=== PATIENT | male | born 1950 | race Caucasian/White ===

== ENCOUNTER → 2018-11-20 | Day surgery (SDC) | payer MEDICARE ==
[2018-11-16 14:33] LABS: BASOPHILS # (AUTO) 0.1 (0.0-0.1); BASOPHILS % 0.8 % (0.0-1.0); EOSINOPHILS # (AUTO) 0.1 (0.0-0.4); EOSINOPHILS % 1.6 % (0.0-6.0); HEMATOCRIT 43.3 % (38.2-49.6); HEMOGLOBIN 14.5 g/dL (14.0-18.0); LYMPHOCYTES % 27.9 % (18.0-39.1); MEAN CORPUSCULAR HEMOGLOBIN 29.5 pg (28-32); MEAN CORPUSCULAR HGB CONC 33.5 g/dL (31-35); MEAN CORPUSCULAR VOLUME 88.2 fL (81-99); MONOCYTES # (AUTO) 0.6 (0.2-0.8); MONOCYTES % 8.2 % (4.4-11.3); NEUTROPHILS # (AUTO) 4.4 (2.1-6.9); NEUTROPHILS % 60.7 % (38.7-80.0); PLATELET COUNT 141 x10e3/uL (140-360); RED BLOOD COUNT 4.91 x10e6/uL (4.3-5.7); RED CELL DISTRIBUTION WIDTH 13.2 % (11.7-14.4)
[~2018-11-20] MED LIST: ACETAMINOPHEN 1000 MG/100 ML IV ONE; ADVAIR 500/501 EA INH; AMLODIPINE BESY10 MG PO; ASPIR 8181 MG PO; BACITRACIN 50,000 UNIT VIAL ONE; BENEFIBER240 GM PO; BUPIVACAINE HCL 0.5% INJ 30 ML VIAL INJ ONE; BUPROPION HCL100 MG PO; CEFAZOLIN SOD 1 GM/NS 50ML 50 ML IV ONE; DEXAMETHASONE SOD PHOS INJ 4 MG/ML VIAL ONE; FENTANYL CITRATE/PF 100MCG/2 ML INJ ONE; FINASTERIDE5 MG PO; FLOMAX0.4 MG PO; HYDROXYZINE HCL25 MG PO; IRON PO; LEVOFLOXACIN 500MG/D5W 100ML 100 ML IV ONE; LIDOCAINE HCL 1% LOCAL INJ 20 ML VIAL ONE; LIDOCAINE HCL 2% LOCAL INJ 5 ML SDV VIAL INJ ONE; LISINOPRIL10 MG PO; LORATADINE10 MG PO; LORAZEPAM1 MG PO; METOPROLOL TART50 MG PO; MIDAZOLAM HCL 2 MG/2 ML VIAL ONE; MULTIVITAMINS1 EAC7 PO; ONDANSETRON HCL INJ 2MG/ML 2ML 2 MG/ML VIAL ONE; PANTOPRAZOLE SO40 MG PO; PROPOFOL IV EMULSION 10 MG/ML 20 ML VIAL ONE; REPATHA; SEVOFLURANE INHAL SOLN 250 ML PEN BTL ONE; VITAMIN B12-FO1 EACH PO; VITAMIN D31000 UNI1 PO
[2018-11-20 11:00] VITALS: BP 130/73
--- NOTE | 2018-11-20 20:06 | Operative Report ---
DATE OF PROCEDURE: 11/20/2018 SURGEON: Vignesh Kaur MD PREOPERATIVE DIAGNOSES: Bilateral spermatocele, bilateral hydrocele, postoperative pain. POSTOPERATIVE DIAGNOSES: Bilateral spermatocele, bilateral hydrocele, postoperative pain PROCEDURES: 1. Bilateral hydrocele repair (entirely separate procedure for bilateral hydroceles). 2. Left-sided spermatocele repair. 3. Right-sided spermatocele repair. 4. Spermatic cord block (entirely separate procedure for the exclusive purpose of reliving the postoperative pain not required for surgery as the patient underwent general anesthesia). ANESTHESIA: General. ESTIMATED BLOOD LOSS: Minimal. COMPLICATIONS: None. INDICATIONS FOR PROCEDURE: Mr. Parsons is a 67-year-old male with a history of symptomatic bilateral spermatoceles and on my exam bilateral hydroceles. He and I had a long discussion about alternatives, risks, and benefits of doing nothing, repair. He voiced understanding of the options, the alternatives, the risks and benefits and he elected to proceed PROCEDURE IN DETAIL: After informed consent was obtained, the patient was taken to the operative suite, placed supine on the operative table, underwent general anesthesia by service. He was prepped and draped in standard fashion for scrotal surgery. A time-out was taken. Attention was turned to the scrotum. A midline incision was carried to the cremasters. Attention was first turned to the left testicle, which was delivered extravaginally. Tunica vaginalis was sharply incised draining a plethora of fluid. A sales utility representative section of the hydrocele sac was passed off the table as specimen. This was then inverted upon itself, hold in bottleneck fashion and sewn closed with chromic gut stitch. At this time, spermatocele was readily evidenced approximately 2 cm inside on the left. This was dissected with a combination of sharp and electrocautery until neck was identified, this was ligated and fulgurated. A sales utility representative section of the spermatocele was passed off the table as a specimen. Meticulous hemostasis was obtained. The testicle was placed back in its normal anatomic location and position in the left hemiscrotum. This process was then repeated on the right side with excellent hemostasis obtained. Both testes were placed in normal anatomic location and position under direct vision. Spermatic cord block was performed with 0.5% Marcaine. The wound was again irrigated. The cremasters were closed with a running chromic gut stitch. The skin was then closed with a running chromic gut stitch. All sponge and instrument counts were correct x2. MD AQUILINO Tompkins/HARRY /[id number] cc: Odell Belcher MD
== END | disposition home or self-care (01) ==
LOC: OR 08:02
PROVIDERS: ATTEND Urology
DX: N43.42 Spermatocele of epididymis, multiple (principal); N43.3 Hydrocele, unspecified; G89.18 Other acute postprocedural pain; Z88.1 Allergy status to other antibiotic agents; Z88.0 Allergy status to penicillin; Z88.8 Allergy status to other drugs, medicaments and biological substances; K21.9 Gastro-esophageal reflux disease without esophagitis; F41.9 Anxiety disorder, unspecified; F32.9 Major depressive disorder, single episode, unspecified; F17.210 Nicotine dependence, cigarettes, uncomplicated; I10 Essential (primary) hypertension; N40.0 Benign prostatic hyperplasia without lower urinary tract symptoms; Z01.812 Encounter for preprocedural laboratory examination
CPT/HCPCS: 36415; 54840; 55060; 85025; 88302; 88304; J0131; J0690; J1100; J1956; J2001; J2250; J2405; J2704

== ENCOUNTER 2020-04-20 17:37 | Emergency (ER) | payer BC, MEDICARE ==
[~2020-04-20] VITALS: Ht 170.2 cm; Wt 70.3 kg
[~2020-04-20 17:37] MED LIST changes: -ACETAMINOPHEN 1000 MG/100 ML IV ONE; -BACITRACIN 50,000 UNIT VIAL ONE; -BUPIVACAINE HCL 0.5% INJ 30 ML VIAL INJ ONE; -CEFAZOLIN SOD 1 GM/NS 50ML 50 ML IV ONE; -DEXAMETHASONE SOD PHOS INJ 4 MG/ML VIAL ONE; -FENTANYL CITRATE/PF 100MCG/2 ML INJ ONE; -LEVOFLOXACIN 500MG/D5W 100ML 100 ML IV ONE; -LIDOCAINE HCL 1% LOCAL INJ 20 ML VIAL ONE; -LIDOCAINE HCL 2% LOCAL INJ 5 ML SDV VIAL INJ ONE; -MIDAZOLAM HCL 2 MG/2 ML VIAL ONE; -ONDANSETRON HCL INJ 2MG/ML 2ML 2 MG/ML VIAL ONE; -PROPOFOL IV EMULSION 10 MG/ML 20 ML VIAL ONE; -SEVOFLURANE INHAL SOLN 250 ML PEN BTL ONE
[2020-04-20] MEDS ORDERED: MORPHINE SULFATE 2 MG/ML SYR 1ML IV STA ×2 (18:33→19:13)
[2020-04-20] MEDS ORDERED: ONDANSETRON HCL INJ 2MG/ML 2ML 2 MG/ML VIAL IV STA (18:33)
[2020-04-20] MEDS ORDERED: MORPHINE SULFATE INJ 4 MG/ML INJ 1ML ONE (18:44)
[2020-04-20] MEDS ORDERED: ONDANSETRON HCL INJ 2MG/ML 2ML 2 MG/ML VIAL ONE (18:44)
[2020-04-20] MEDS ORDERED: SODIUM CHLORIDE 0.9% 1000ML 1,000 ML IV SCH (18:45)
[2020-04-20] MEDS ORDERED: MORPHINE SULFATE INJ 4 MG/ML INJ 1ML IV STA (18:45)
[2020-04-20] MEDS ORDERED: ONDANSETRON ODT8 MG PO (21:33)
[2020-04-20] MEDS ORDERED: CIPRO500 MG PO (21:36)
[2020-06-02] MEDS ORDERED: ALLERGY RELIEF10 M1 PO (16:12)
[2020-06-02] MEDS ORDERED: WIXELA 500-501 EACH INH (16:12)
[2020-06-02] MEDS ORDERED: REPATHA PU420 MG/3.5 SC (16:12)
[2020-06-02] MEDS ORDERED: VITAMIN B-121000 MCG PO (16:12)
[2020-06-02] MEDS ORDERED: OMEPRAZOLE40 MG PO (16:12)
== END 2020-04-20 21:55 | disposition home or self-care (01) ==
LOC: FSED 17:45
DX: R10.11 Right upper quadrant pain (principal); R10.31 Right lower quadrant pain; R33.9 Retention of urine, unspecified; R11.2 Nausea with vomiting, unspecified; N40.1 Benign prostatic hyperplasia with lower urinary tract symptoms; I10 Essential (primary) hypertension; J44.9 Chronic obstructive pulmonary disease, unspecified; E78.5 Hyperlipidemia, unspecified; K21.9 Gastro-esophageal reflux disease without esophagitis; F41.9 Anxiety disorder, unspecified; F17.210 Nicotine dependence, cigarettes, uncomplicated
CPT/HCPCS: 51702; 74176; 80048; 80076; 81003; 82553; 84484; 85025; 96374; 96375; 99284; J2270; J2405; J7030

== ENCOUNTER → 2020-06-06 | Day surgery (SDC) | payer MEDICARE ==
[2020-06-02 11:08] LABS: BASOPHILS # (AUTO) 0.1 (0.0-0.1); BASOPHILS % 0.7 % (0.0-1.0); EOSINOPHILS # (AUTO) 0.2 (0.0-0.4); EOSINOPHILS % 2.9 % (0.0-6.0); HEMATOCRIT 38.3 % (38.2-49.6); HEMOGLOBIN 12.1 g/dL (14.0-18.0); LYMPHOCYTES # (AUTO) 2.3 (1.0-3.2); MEAN CORPUSCULAR HEMOGLOBIN 27.9 pg (28-32); MEAN CORPUSCULAR HGB CONC 31.6 g/dL (31-35); MEAN CORPUSCULAR VOLUME 88.2 fL (81-99); MONOCYTES # (AUTO) 0.6 (0.2-0.8); MONOCYTES % 8.5 % (4.4-11.3); NEUTROPHILS % 55.3 % (38.7-80.0); PLATELET COUNT 161 x10e3/uL (140-360); RED BLOOD COUNT 4.34 x10e6/uL (4.3-5.7); RED CELL DISTRIBUTION WIDTH 14.2 % (11.7-14.4)
[2020-06-02 11:31] LABS: ALBUMIN 3.3 g/dL (3.5-5.0); ANION GAP 15.6 mmol/L (8-16); CALCIUM 8.5 mg/dL (8.4-10.2); CREATININE, SERUM 2.32 mg/dL (0.72-1.25); POTASSIUM 4.6 mmol/L (3.5-5.1)
[~2020-06-06] VITALS: Ht 170.2 cm; Wt 67.6 kg
[~2020-06-06] MED LIST changes: +ALLERGY RELIEF10 M1 PO; +ALPRAZOLAM 0.5 MG TAB ONE; +CIPRO500 MG PO; +DIPHENHYDRAMINE HCL 25 MG CAP ONE; +FENTANYL CITRATE/PF 100MCG/2 ML INJ ONE; +HEPARIN SOD/SOD CHLORIDE 2,000 ML ONE; +IOPAMIDOL 370 MG/ML 200 ML INFUS..BTL INJ ONE; +LIDOCAINE HCL 2% LOCAL 20 ML VIAL ONE; +MIDAZOLAM HCL 2 MG/2 ML VIAL ONE; +OMEPRAZOLE40 MG PO; +ONDANSETRON ODT8 MG PO; +REPATHA PU420 MG/3.5 SC; +SODIUM CHLORIDE 0.9% 1000ML 1,000 ML ONE; +VERAPAMIL HCL 2.5 MG/ML 2 ML VIAL ONE; +VITAMIN B-121000 MCG PO; +WIXELA 500-501 EACH INH
--- NOTE | 2020-06-06 11:43 | NUR ---
1143a Report from Anurag Salazar Identifer x2 . Alert oriented and appropriate, PERRLA, respirations even and unlabored to room air. Pulses x4 extremities equal and palpable . Cap fill brisk < 3 sec. + neurovascular function of right wrist/hand w/ TR Band present. No s/s of swelling or discolor at site. VS trend reviewed and medications given.TR band down at 1230. Skin warm and dry integrity appears intact in general. IV left ac at 100cchr, presents healthy w/o s/s of infiltration or complaint. Abdomen soft and supple. pt offered toileting, denies need to urinate or defecate. Resting with HOB elevated aprox 30o. Personal affects with patient. Pt verbalizes understanding of POC. Educated simulation analyst light use. bed low and locked, side rails up x2 and call light at side. tele obs bed requested and awaiting assignment. pt using personal mask for COVID-19 mitigation. ds/sarah beth
[2020-06-06 12:00] VITALS: BP 100/70
[2020-06-06 12:15] VITALS: BP 133/71
[2020-06-06 12:30] VITALS: BP 132/71
--- NOTE | 2020-06-06 12:41 | Operative Report ---
DATE OF PROCEDURE: 06/06/2020 SURGEON: Triston Murphy MD INDICATIONS: Coronary artery disease, angina, and abnormal stress test. PROCEDURES PERFORMED: 1. Ultrasound-guided access in the right radial artery with sheath placement. 2. Conscious sedation, 35 minutes. 3. Left heart catheterization, selective coronary angiography. 4. Deployment of right wrist TR band. COMPLICATIONS: None. BLOOD LOSS: Minimal. RECOMMENDATIONS: 1. Addition of ranolazine for medical therapy of moderate coronary artery disease. 2. Nephrology consultation. DESCRIPTION OF PROCEDURE: Access was obtained in the right radial artery using ultrasound guidance. A 5-Yi sheath was placed. Coronary angiography demonstrated 50% proximal circumflex stenosis, 50% left anterior descending artery stenosis. Remaining vessels had diffuse 30% to 50% stenosis. LV end-diastolic pressure was 15. No gradient across the aortic valve. No intervention deemed necessary. Right wrist TR band applied. The patient discharged home the same day. MD RADHA Butcher/MODL /[id number]
[2020-06-06 12:45] VITALS: BP 128/77
[2020-06-06 13:00] VITALS: BP 129/81
--- NOTE | 2020-06-06 13:00 | NUR ---
1300p Pt meets discharge criteria. VS wnl, alert and oriented. Pt and Family Understands discharge instruction. Overall general assess w/o gross outliers. Skin warm, dry, and intact. Right radial dressing soft w/o s/s of hematoma. + neurovascular function of right hand present. IV removed and appears distal tip is intact, Amy rn staffing member verifying. Pt maintains mask on for COVID 19 precautions being taken by wheel chair to awaiting car. Transfers w/o gross distress with discharge paperwork in hand.-ds/rn
[2020-06-06 14:43] VITALS: BP 122/70
== END | disposition home or self-care (01) ==
LOC: CATH LAB 09:07
PROVIDERS: ATTEND Internal Medicine Interventional Cardiology
DX: I25.118 Atherosclerotic heart disease of native coronary artery with other forms of angina pectoris (principal); R94.39 Abnormal result of other cardiovascular function study; J44.9 Chronic obstructive pulmonary disease, unspecified; I12.9 Hypertensive chronic kidney disease with stage 1 through stage 4 chronic kidney disease, or unspecified chronic kidney disease; N18.9 Chronic kidney disease, unspecified; Z88.1 Allergy status to other antibiotic agents; Z88.0 Allergy status to penicillin; Z88.8 Allergy status to other drugs, medicaments and biological substances; Z01.812 Encounter for preprocedural laboratory examination; Z20.828 Contact with and (suspected) exposure to other viral communicable diseases; Z82.3 Family history of stroke
CPT/HCPCS: 36415; 76937; 80053; 85025; 93454; C1769; C1887; J2001; J2250; J3010; J7030; Q9967; U0002; 99152